=== PATIENT | male | born 1955 | race Caucasian/White ===

== ENCOUNTER → 2020-10-21 11:29 | Outpatient (CLI) | payer BC, SELFPAY ==
--- NOTE | ~2020-10-21 | XR_ITS ---
EXAMINATION: XR lumbar spine 2-3V DATE: 10/21/2020 11:58 INDICATION: Low back pain. TECHNIQUE: Anteroposterior and lateral views of the lumbar spine, and cone-down lateral view of the l umbosacral junction were obtained. COMPARISON: None. FINDINGS: Mild kyphosis centered at a chronic appearing L2 compression fracture with one third anterior vertebr al body height loss. No sharply angulated cortex or linear lucency or sclerosis to suggest recent fra cture. 4 mm retrolisthesis L2 on L3, L3 on L4 and 3 mm retrolisthesis L4 on L5. Moderate disc height loss at L2-L3 and mild disc height loss at L1-L2 and L3-L4. Moderate to severe facet osteoarthritis o n the left at L4-5 and bilaterally at L5-S1. Lesser facet osteoarthritis in the remainder of the lumb ar spine. Normal bowel gas pattern. IMPRESSION: 1. Chronic appearing L2 compression fracture with one third anterior vertebral body height loss. 2. Mild to moderate lumbar spondylosis. Reviewed, dictated and finalized at location B. GIOUS ASSISTANT
--- NOTE | ~2020-10-21 | XR_ITS ---
EXAMINATION: XR shoulder LT min 2V DATE: 10/21/2020 11:58 INDICATION: Left shoulder pain. TECHNIQUE: 4 views of left shoulder were obtained. COMPARISON: None. FINDINGS: Bone alignment is normal. No fracture. There is mild osteoarthritis of glenohumeral joint a nd severe osteoarthritis of acromioclavicular joint. IMPRESSION: 1. Polyarticular osteoarthritis. Reviewed, dictated and finalized at location A. HANGER
--- NOTE | ~2020-10-21 | XR_ITS ---
EXAMINATION: XR shoulder RT min 2V DATE: 10/21/2020 11:58 INDICATION: Right shoulder pain. TECHNIQUE: 4 views of right shoulder were obtained. COMPARISON: None. FINDINGS: Bone alignment is normal. No fracture. There is mild osteoarthritis of glenohumeral joint a nd severe osteoarthritis of acromioclavicular joint. IMPRESSION: 1. Polyarticular osteoarthritis. Reviewed, dictated and finalized at location A. LANCE COPYWRITER
== END ==
PROVIDERS: PCP Family Medicine; Visit Provider Family Medicine
DX: M54.5 Low back pain (principal); M48.56XA Collapsed vertebra, not elsewhere classified, lumbar region, initial encounter for fracture; M47.816 Spondylosis without myelopathy or radiculopathy, lumbar region; M19.012 Primary osteoarthritis, left shoulder; M19.011 Primary osteoarthritis, right shoulder
CPT/HCPCS: 72100; 73030